=== PATIENT | female | born 1940 | race Two or more races ===

== ENCOUNTER 2023-06-06 03:06 | Inpatient (IN) | payer MEDICARE, OTHER ==
[~2023-06-06] VITALS: Ht 162.6 cm; Wt 82.1 kg
[2023-06-06] MEDS ORDERED: VIT1TABL46 GT (11:21)
[2023-06-06] MEDS ORDERED: DOCU50LI GT (11:21)
[2023-06-06] MEDS ORDERED: LOSA50TA39 GT (11:21)
[2023-06-06] MEDS ORDERED: QUET50TA GT (11:21)
[2023-06-06] MEDS ORDERED: DIVA125C2 GT (11:21)
[2023-06-06] MEDS ORDERED: PETR113O TP (11:21)
[2023-06-06] MEDS ORDERED: FAMO20TA8 GT (11:21)
[2023-06-06] MEDS ORDERED: FERR300L GT (11:21)
[2023-06-06] MEDS ORDERED: LACT10SO3 GT (11:21)
[2023-06-06] MEDS ORDERED: DIPH25CA51 GT (11:21)
[2023-06-06] MEDS ORDERED: CHLO473M5 MM (11:21)
[2023-06-06] MEDS ORDERED: PANT20TA17 GT (11:21)
[2023-06-06] MEDS ORDERED: LEVE500T9 GT (11:21)
[2023-06-06] MEDS ORDERED: ACET-868 GT (11:21)
[2023-06-06] MEDS ORDERED: ASCO-352 GT (11:21)
[2023-06-06] MEDS ORDERED: ATOR10TA GT (11:21)
[2023-06-06] MEDS ORDERED: DILT30TA14 GT (11:21)
[2023-06-06] MEDS ORDERED: HYDR-4075 GT (11:21)
[2023-06-06] MEDS ORDERED: MELA5TAB GT (11:21)
[2023-06-06] MEDS ORDERED: NUTR150016 GT (11:21)
[2023-06-06] MEDS ORDERED: MAGN400O6 GT (11:21)
[2023-06-06] MEDS ORDERED: BISA10SU11 RC (11:21)
[2023-06-06] MEDS ORDERED: QUET25TA GT (11:21)
[2023-06-06] MEDS ORDERED: CLON0.1T GT (11:21)
[2023-06-06] MEDS ORDERED: EPOE40002 SQ (11:21)
[2023-06-06] MEDS ORDERED: IPRA3AMP23 IH ×2 (11:21)
[2023-06-06] MEDS ORDERED: FOLI0.4T6 GT (11:21)
[2023-06-06] MEDS ORDERED: ONDANSETRON HCL/PF 4 MG/2 ML VIAL IVP PRN (11:30)
[2023-06-06] MEDS ORDERED: Z GUARD REMEDY 4 OZ OINT TP PRN (11:30)
[2023-06-06] MEDS ORDERED: IV NS 0.9% 1,000 ML IV PRN (11:30)
[2023-06-06] MEDS ORDERED: ACETAMINOPHEN 325 MG TABLET PO PRN (11:30)
[2023-06-06 12:00] VITALS: BP 158/96; TEMP 97.6
[2023-06-06] MEDS ORDERED: PIPERACILLIN /TAZOBACTAM 4.5 G in IV D5W 50 ML IV SCH (12:00)
[2023-06-06] MEDS ORDERED: ZOSYN IVPB 3.375 G in IV D5W 50ml IV ONE (12:00)
[2023-06-06 12:38] LABS: BASOPHILS % (AUTO) 0.1 % (0.0-2.0); EOSINOPHILS # (AUTO) 0.2 K/uL (0.0-0.7); EOSINOPHILS % (AUTO) 1.1 % (0.0-6.0); HEMATOCRIT 30 % (33-45); HEMOGLOBIN 9.6 g/dL (11.5-14.8); LYMPHOCYTES # (AUTO) 1.1 K/uL (0.8-4.8); LYMPHOCYTES % (AUTO) 5.8 % (20.0-44.0); MEAN CORPUSCULAR HEMOGLOBIN 31 PG (26.0-33.0); MEAN CORPUSCULAR HGB CONC 32 g/dl (31.0-36.0); MEAN CORPUSCULAR VOLUME 97 fL (82-100); MONOCYTES # (AUTO) 0.9 K/uL (0.1-1.30); MONOCYTES % (AUTO) 4.7 % (2.0-12.0); NEUTROPHILS # (AUTO) 16.3 K/uL (1.8-8.9); NEUTROPHILS % (AUTO) 88.3 % (43.0-81.0); PLATELET COUNT (AUTO) 212 K/uL (150-450); RED BLOOD CELL COUNT(AUTO) 3.08 MIL/uL (4.0-5.2); RED CELL DISTRIBUTION WIDTH 15.6 % (11.5-15.0); WHITE BLOOD COUNT (AUTO) 18.5 K/uL (4.3-11.0)
[2023-06-06 12:52] LABS: ALBUMIN 2.5 g/dL (3.4-5.0); BILIRUBIN,TOTAL 0.4 mg/dL (0.2-1.0); CALCIUM, SERUM 8.9 mg/dL (8.5-10.1); CREATININE 0.8 mg/dL (0.6-1.3); POTASSIUM 4.1 mmol/L (3.5-5.1); TOTAL PROTEIN, SERUM 8.3 g/dL (6.4-8.2)
[2023-06-06] MEDS ORDERED: VANCOMYCIN 1.5 GM in IV D5W 500 ML IV ONE (13:00)
[2023-06-06] MEDS: ENOXAPARIN SODIUM 40 MG/0.4 ML DISP.SYRIN SQ SCH (13:17)
[2023-06-06] MEDS ORDERED: JEVITY 1.2 CAL 1,000 ML BOTTLE GT PRN (14:30)
[2023-06-06] MEDS ORDERED: ACETAMINOPHEN LIQUID 325 MG/10.1 ML UDC GT PRN (14:30)
[2023-06-06 16:00] VITALS: BP 142/85; TEMP 97.8
[2023-06-06] MEDS: PIPERACILLIN /TAZOBACTAM 3.375 G in IV D5W 100 ML IV SCH (17:07)
[2023-06-06 20:00] VITALS: BP 169/87; TEMP 98.1; O2SAT 99
[2023-06-07] VITALS (8 sets, daily range): BP systolic 130–185; BP diastolic 54–82; TEMP 98.1–98.9; O2SAT 99–100
[2023-06-07] MEDS ORDERED: hydrALAZINE HCL IV 20 MG VIAL IV PRN (01:00)
[2023-06-07] MEDS: PIPERACILLIN /TAZOBACTAM 3.375 G in IV D5W 100 ML IV SCH ×3 (01:53→17:35)
[2023-06-07 07:02] LABS: BASOPHILS % (AUTO) 0.1 % (0.0-2.0); EOSINOPHILS # (AUTO) 0.2 K/uL (0.0-0.7); EOSINOPHILS % (AUTO) 1.9 % (0.0-6.0); HEMATOCRIT 28 % (33-45); LYMPHOCYTES # (AUTO) 1.1 K/uL (0.8-4.8); LYMPHOCYTES % (AUTO) 9.1 % (20.0-44.0); MEAN CORPUSCULAR HEMOGLOBIN 31 PG (26.0-33.0); MEAN CORPUSCULAR HGB CONC 32 g/dl (31.0-36.0); MEAN CORPUSCULAR VOLUME 97 fL (82-100); MONOCYTES # (AUTO) 0.8 K/uL (0.1-1.30); MONOCYTES % (AUTO) 6.8 % (2.0-12.0); NEUTROPHILS % (AUTO) 82.1 % (43.0-81.0); PLATELET COUNT (AUTO) 201 K/uL (150-450); RED BLOOD CELL COUNT(AUTO) 2.88 MIL/uL (4.0-5.2); RED CELL DISTRIBUTION WIDTH 15.2 % (11.5-15.0); WHITE BLOOD COUNT (AUTO) 12.1 K/uL (4.3-11.0)
[2023-06-07 08:15] LABS: ALBUMIN 2.4 g/dL (3.4-5.0); BILIRUBIN,TOTAL 0.3 mg/dL (0.2-1.0); CALCIUM, SERUM 9.1 mg/dL (8.5-10.1); CREATININE 0.9 mg/dL (0.6-1.3); MAGNESIUM 2.3 mg/dL (1.8-2.4); PHOSPHORUS 3.5 mg/dL (2.5-4.9); POTASSIUM 3.9 mmol/L (3.5-5.1); TOTAL PROTEIN, SERUM 7.8 g/dL (6.4-8.2)
[2023-06-07] MEDS ORDERED: FUROSEMIDE 40 MG/4 ML VIAL IV ONE (09:30)
[2023-06-07] MEDS ORDERED: CLONIDINE HCL 0.1 MG TABLET GT PRN (09:30)
[2023-06-07] MEDS ORDERED: MAGNESIUM HYDROXIDE 30 ML UDC GT PRN (09:30)
[2023-06-07] MEDS ORDERED: diphenhydrAMINE HCL 25 MG CAPSULE MC PRN (09:30)
[2023-06-07] MEDS: ENOXAPARIN SODIUM 40 MG/0.4 ML DISP.SYRIN SQ SCH (11:27)
[2023-06-07] MEDS: hydrALAZINE HCL 10 MG TABLET GT SCH ×2 (12:47→21:45)
[2023-06-07] MEDS: DIVALPROEX SODIUM 125 MG CAP.SPRINK GT SCH ×2 (12:47→21:45)
[2023-06-07] MEDS: FERROUS SULFATE UDC 300 MG/5 ML UDC GT SCH ×2 (12:48→17:33)
[2023-06-07] MEDS: LACTULOSE 10 G/15 ML UDC (PYXIS) GT SCH ×2 (12:48→21:44)
[2023-06-07] MEDS: VANCOMYCIN 1.25 GM in IV D5W 250 ML IV SCH (13:43)
[2023-06-07] MEDS: QUETIAPINE FUMARATE 25 MG TABLET GT SCH ×2 (17:34→21:45)
[2023-06-07] MEDS: DOCUSATE SODIUM LIQ 100 MG/10 ML UDC GT SCH (21:44)
[2023-06-07] MEDS: LEVETIRACETAM SOL (5 ML) 100 MG/ML UDC GT SCH (21:44)
[2023-06-07] MEDS: DILTIAZEM HCL 30 MG TABLET GT SCH (21:45)
[2023-06-07] MEDS: FAMOTIDINE (20 MG) 20 MG TABLET GT SCH (21:45)
[2023-06-07] MEDS: LOSARTAN POTASSIUM 50 MG TABLET GT SCH (21:46)
[2023-06-07] MEDS ORDERED: Medication Not On Formulary EA (Melatonin 10 MG) GT SCH (22:00)
[2023-06-08] VITALS: BP 140/69; TEMP 98.8; O2SAT 100
[2023-06-08] MEDS: JEVITY 1.2 CAL 1,000 ML BOTTLE GT PRN ×2 (00:20→17:35)
[2023-06-08] MEDS: PIPERACILLIN /TAZOBACTAM 3.375 G in IV D5W 100 ML IV SCH ×3 (00:28→16:36)
[2023-06-08 04:00] VITALS: BP 125/54; TEMP 98.6; O2SAT 100
[2023-06-08] MEDS: PANTOPRAZOLE 40 MG/PACK PACK GT SCH (05:05)
[2023-06-08] MEDS: LACTULOSE 10 G/15 ML UDC (PYXIS) GT SCH ×3 (05:06→20:50)
[2023-06-08] MEDS: hydrALAZINE HCL 10 MG TABLET GT SCH ×3 (05:06→20:50)
[2023-06-08] MEDS: DIVALPROEX SODIUM 125 MG CAP.SPRINK GT SCH ×3 (05:06→20:49)
[2023-06-08 06:04] LABS: BASOPHILS % (AUTO) 0.3 % (0.0-2.0); EOSINOPHILS # (AUTO) 0.3 K/uL (0.0-0.7); EOSINOPHILS % (AUTO) 3.8 % (0.0-6.0); HEMATOCRIT 27 % (33-45); LYMPHOCYTES # (AUTO) 1.5 K/uL (0.8-4.8); LYMPHOCYTES % (AUTO) 19.7 % (20.0-44.0); MEAN CORPUSCULAR HEMOGLOBIN 32 PG (26.0-33.0); MEAN CORPUSCULAR HGB CONC 33 g/dl (31.0-36.0); MEAN CORPUSCULAR VOLUME 96 fL (82-100); MONOCYTES # (AUTO) 0.8 K/uL (0.1-1.30); MONOCYTES % (AUTO) 10.1 % (2.0-12.0); NEUTROPHILS % (AUTO) 66.1 % (43.0-81.0); PLATELET COUNT (AUTO) 208 K/uL (150-450); RED BLOOD CELL COUNT(AUTO) 2.84 MIL/uL (4.0-5.2); WHITE BLOOD COUNT (AUTO) 7.5 K/uL (4.3-11.0)
[2023-06-08 06:47] LABS: CALCIUM, SERUM 9.4 mg/dL (8.5-10.1); CARBON DIOXIDE 32 mmol/L (21-32); CHLORIDE 104 mmol/L (98-107); CREATININE 1.1 mg/dL (0.6-1.3); GLUCOSE 122 mg/dL (74-106); MAGNESIUM 2.3 mg/dL (1.8-2.4); PHOSPHORUS 5.2 mg/dL (2.5-4.9); POTASSIUM 3.7 mmol/L (3.5-5.1); SODIUM SERUM 143 mmol/L (136-145); UREA NITROGEN, BLOOD 27 mg/dL (7-18)
[2023-06-08 08:00] VITALS: BP 136/66; TEMP 98; O2SAT 99
[2023-06-08] MEDS: DOCUSATE SODIUM LIQ 100 MG/10 ML UDC GT SCH ×2 (08:55→20:50)
[2023-06-08] MEDS: FERROUS SULFATE UDC 300 MG/5 ML UDC GT SCH ×3 (08:55→16:36)
[2023-06-08] MEDS: DILTIAZEM HCL 30 MG TABLET GT SCH ×2 (08:55→20:49)
[2023-06-08] MEDS: QUETIAPINE FUMARATE 25 MG TABLET GT SCH ×3 (08:55→23:16)
[2023-06-08] MEDS: LEVETIRACETAM SOL (5 ML) 100 MG/ML UDC GT SCH ×2 (08:55→20:50)
[2023-06-08] MEDS: LOSARTAN POTASSIUM 50 MG TABLET GT SCH ×2 (08:56→20:50)
[2023-06-08 12:00] VITALS: BP 98/49; TEMP 98.5; O2SAT 99
[2023-06-08] MEDS: ENOXAPARIN SODIUM 40 MG/0.4 ML DISP.SYRIN SQ SCH (12:46)
[2023-06-08] MEDS: VANCOMYCIN 1.25 GM in IV D5W 250 ML IV SCH (12:49)
[2023-06-08 16:00] VITALS: BP 99/58; TEMP 98.9; O2SAT 99
[2023-06-08 20:00] VITALS: BP 130/75; TEMP 97.9; O2SAT 99
[2023-06-08] MEDS: FAMOTIDINE (20 MG) 20 MG TABLET GT SCH (23:16)
[2023-06-09] VITALS: BP 136/77; TEMP 97.9; O2SAT 99
[2023-06-09] MEDS: PIPERACILLIN /TAZOBACTAM 3.375 G in IV D5W 100 ML IV SCH ×3 (01:20→16:56)
[2023-06-09 04:00] VITALS: BP 133/66; TEMP 97.9; O2SAT 99
[2023-06-09] MEDS: hydrALAZINE HCL 10 MG TABLET GT SCH ×3 (05:39→21:04)
[2023-06-09] MEDS: PANTOPRAZOLE 40 MG/PACK PACK GT SCH (05:40)
[2023-06-09] MEDS: LACTULOSE 10 G/15 ML UDC (PYXIS) GT SCH ×3 (05:40→21:05)
[2023-06-09] MEDS: DIVALPROEX SODIUM 125 MG CAP.SPRINK GT SCH ×3 (05:40→21:04)
[2023-06-09 07:10] LABS: BASOPHILS % (AUTO) 0.5 % (0.0-2.0); EOSINOPHILS # (AUTO) 0.3 K/uL (0.0-0.7); EOSINOPHILS % (AUTO) 6.4 % (0.0-6.0); HEMATOCRIT 27 % (33-45); HEMOGLOBIN 8.8 g/dL (11.5-14.8); LYMPHOCYTES # (AUTO) 1.4 K/uL (0.8-4.8); LYMPHOCYTES % (AUTO) 26.7 % (20.0-44.0); MEAN CORPUSCULAR HEMOGLOBIN 31 PG (26.0-33.0); MEAN CORPUSCULAR HGB CONC 32 g/dl (31.0-36.0); MEAN CORPUSCULAR VOLUME 97 fL (82-100); MONOCYTES # (AUTO) 0.7 K/uL (0.1-1.30); MONOCYTES % (AUTO) 12.3 % (2.0-12.0); NEUTROPHILS # (AUTO) 2.9 K/uL (1.8-8.9); NEUTROPHILS % (AUTO) 54.1 % (43.0-81.0); PLATELET COUNT (AUTO) 113 K/uL (150-450); RED CELL DISTRIBUTION WIDTH 15.3 % (11.5-15.0); WHITE BLOOD COUNT (AUTO) 5.4 K/uL (4.3-11.0)
[2023-06-09 07:35] LABS: CALCIUM, SERUM 8.9 mg/dL (8.5-10.1); CREATININE 1.1 mg/dL (0.6-1.3); MAGNESIUM 2.3 mg/dL (1.8-2.4); PHOSPHORUS 3.7 mg/dL (2.5-4.9); POTASSIUM 4.2 mmol/L (3.5-5.1)
[2023-06-09 08:00] VITALS: BP 120/64; TEMP 98.2; O2SAT 99
[2023-06-09] MEDS: LOSARTAN POTASSIUM 50 MG TABLET GT SCH ×2 (09:32→21:04)
[2023-06-09] MEDS: DOCUSATE SODIUM LIQ 100 MG/10 ML UDC GT SCH ×2 (09:32→21:05)
[2023-06-09] MEDS: LEVETIRACETAM SOL (5 ML) 100 MG/ML UDC GT SCH ×2 (09:32→21:05)
[2023-06-09] MEDS: DILTIAZEM HCL 30 MG TABLET GT SCH ×2 (09:32→21:03)
[2023-06-09] MEDS: FERROUS SULFATE UDC 300 MG/5 ML UDC GT SCH ×3 (09:32→16:58)
[2023-06-09] MEDS: QUETIAPINE FUMARATE 25 MG TABLET GT SCH ×3 (09:32→21:18)
[2023-06-09 12:00] VITALS: BP 120/59; TEMP 97.5; O2SAT 99
[2023-06-09] MEDS: VANCOMYCIN 1.25 GM in IV D5W 250 ML IV SCH (12:40)
[2023-06-09] MEDS: ENOXAPARIN SODIUM 40 MG/0.4 ML DISP.SYRIN SQ SCH (12:53)
[2023-06-09 16:00] VITALS: BP 123/72; TEMP 98; O2SAT 99
[2023-06-09 20:00] VITALS: BP 149/48; TEMP 98.2; O2SAT 99
[2023-06-09] MEDS: FAMOTIDINE (20 MG) 20 MG TABLET GT SCH (21:18)
[2023-06-10] VITALS (7 sets, daily range): BP systolic 127–166; BP diastolic 44–103; TEMP 97.7–99.1; O2SAT 99–100
[2023-06-10] MEDS: PIPERACILLIN /TAZOBACTAM 3.375 G in IV D5W 100 ML IV SCH ×3 (01:08→16:07)
[2023-06-10] MEDS: DIVALPROEX SODIUM 125 MG CAP.SPRINK GT SCH ×3 (05:21→21:10)
[2023-06-10] MEDS: hydrALAZINE HCL 10 MG TABLET GT SCH ×3 (05:21→21:10)
[2023-06-10] MEDS: PANTOPRAZOLE 40 MG/PACK PACK GT SCH (05:21)
[2023-06-10] MEDS: LACTULOSE 10 G/15 ML UDC (PYXIS) GT SCH ×3 (05:21→21:07)
[2023-06-10] MEDS: VANCOMYCIN 1.25 GM in IV D5W 250 ML IV SCH (05:27)
[2023-06-10 07:41] LABS: CREATININE 1.1 mg/dL (0.6-1.3); POTASSIUM 4.5 mmol/L (3.5-5.1)
[2023-06-10] MEDS: DOCUSATE SODIUM LIQ 100 MG/10 ML UDC GT SCH ×2 (08:47→21:07)
[2023-06-10] MEDS: LEVETIRACETAM SOL (5 ML) 100 MG/ML UDC GT SCH ×2 (08:47→21:06)
[2023-06-10] MEDS: FERROUS SULFATE UDC 300 MG/5 ML UDC GT SCH ×3 (08:47→16:06)
[2023-06-10] MEDS: DILTIAZEM HCL 30 MG TABLET GT SCH ×2 (08:48→21:10)
[2023-06-10] MEDS: QUETIAPINE FUMARATE 25 MG TABLET GT SCH ×3 (08:51→21:10)
[2023-06-10] MEDS: LOSARTAN POTASSIUM 50 MG TABLET GT SCH ×2 (08:51→21:09)
[2023-06-10] MEDS: ENOXAPARIN SODIUM 40 MG/0.4 ML DISP.SYRIN SQ SCH (11:20)
[2023-06-10] MEDS: JEVITY 1.2 CAL 1,000 ML BOTTLE GT PRN (11:23)
[2023-06-10] MEDS: FAMOTIDINE (20 MG) 20 MG TABLET GT SCH (21:11)
[2023-06-11] VITALS: BP 145/70; TEMP 98.2; O2SAT 100
[2023-06-11] MEDS: VANCOMYCIN 1.25 GM in IV D5W 250 ML IV SCH (00:33)
[2023-06-11] MEDS: PIPERACILLIN /TAZOBACTAM 3.375 G in IV D5W 100 ML IV SCH ×3 (02:14→16:38)
[2023-06-11 04:00] VITALS: BP 139/87; TEMP 98; O2SAT 100
[2023-06-11] MEDS: DIVALPROEX SODIUM 125 MG CAP.SPRINK GT SCH ×3 (05:24→21:45)
[2023-06-11] MEDS: LACTULOSE 10 G/15 ML UDC (PYXIS) GT SCH ×3 (05:24→21:44)
[2023-06-11] MEDS: hydrALAZINE HCL 10 MG TABLET GT SCH ×3 (05:24→21:44)
[2023-06-11 05:30] LABS: CALCIUM, SERUM 8.9 mg/dL (8.5-10.1); POTASSIUM 3.9 mmol/L (3.5-5.1)
[2023-06-11] MEDS: PANTOPRAZOLE 40 MG/PACK PACK GT SCH (06:07)
[2023-06-11 08:00] VITALS: BP 118/73; TEMP 98.1; O2SAT 100
[2023-06-11] MEDS: LEVETIRACETAM SOL (5 ML) 100 MG/ML UDC GT SCH ×2 (08:38→21:45)
[2023-06-11] MEDS: DILTIAZEM HCL 30 MG TABLET GT SCH ×2 (08:39→21:44)
[2023-06-11] MEDS: FERROUS SULFATE UDC 300 MG/5 ML UDC GT SCH ×3 (08:39→16:37)
[2023-06-11] MEDS: DOCUSATE SODIUM LIQ 100 MG/10 ML UDC GT SCH ×2 (08:39→21:44)
[2023-06-11] MEDS: QUETIAPINE FUMARATE 25 MG TABLET GT SCH ×3 (08:42→21:45)
[2023-06-11] MEDS: LOSARTAN POTASSIUM 50 MG TABLET GT SCH ×2 (08:45→21:45)
[2023-06-11] MEDS: ENOXAPARIN SODIUM 40 MG/0.4 ML DISP.SYRIN SQ SCH (10:53)
[2023-06-11] MEDS: JEVITY 1.2 CAL 1,000 ML BOTTLE GT PRN (11:23)
[2023-06-11 12:00] VITALS: BP 110/45; TEMP 97.9; O2SAT 100
[2023-06-11 16:00] VITALS: BP 99/48; TEMP 98.2; O2SAT 100
[2023-06-11 20:00] VITALS: BP 155/81; TEMP 98.6; O2SAT 100
[2023-06-11] MEDS: FAMOTIDINE (20 MG) 20 MG TABLET GT SCH (21:46)
[2023-06-12] VITALS: BP 128/65; TEMP 98; O2SAT 100
[2023-06-12] MEDS ORDERED: VANCOMYCIN 1.25 GM in IV D5W 250 ML IV SCH ×2
[2023-06-12] MEDS: PIPERACILLIN /TAZOBACTAM 3.375 G in IV D5W 100 ML IV SCH ×3 (01:41→16:04)
[2023-06-12 04:00] VITALS: BP 123/53; TEMP 98.2; O2SAT 100
[2023-06-12] MEDS: PANTOPRAZOLE 40 MG/PACK PACK GT SCH (05:44)
[2023-06-12] MEDS: hydrALAZINE HCL 10 MG TABLET GT SCH ×2 (05:44→12:37)
[2023-06-12] MEDS: DIVALPROEX SODIUM 125 MG CAP.SPRINK GT SCH ×2 (05:45→12:37)
[2023-06-12] MEDS: LACTULOSE 10 G/15 ML UDC (PYXIS) GT SCH ×2 (05:57→12:37)
[2023-06-12 06:24] LABS: CREATININE 1.1 mg/dL (0.6-1.3); POTASSIUM 3.9 mmol/L (3.5-5.1)
[2023-06-12] MEDS: JEVITY 1.2 CAL 1,000 ML BOTTLE GT PRN (07:24)
[2023-06-12 08:00] VITALS: BP 111/53; TEMP 98.2; O2SAT 99
[2023-06-12] MEDS: LOSARTAN POTASSIUM 50 MG TABLET GT SCH (08:32)
[2023-06-12] MEDS: FERROUS SULFATE UDC 300 MG/5 ML UDC GT SCH ×3 (08:32→16:04)
[2023-06-12] MEDS: QUETIAPINE FUMARATE 25 MG TABLET GT SCH ×2 (08:32→16:04)
[2023-06-12] MEDS: DOCUSATE SODIUM LIQ 100 MG/10 ML UDC GT SCH (08:32)
[2023-06-12] MEDS: LEVETIRACETAM SOL (5 ML) 100 MG/ML UDC GT SCH (08:32)
[2023-06-12] MEDS: DILTIAZEM HCL 30 MG TABLET GT SCH (08:33)
[2023-06-12] MEDS: ENOXAPARIN SODIUM 40 MG/0.4 ML DISP.SYRIN SQ SCH (10:57)
[2023-06-12 12:00] VITALS: BP 129/53; TEMP 98; O2SAT 100
[2023-06-12 16:00] VITALS: BP 147/81; TEMP 98; O2SAT 99
== END 2023-06-12 17:28 | DRG 207 ==
LOC: TELE1 10:39
PROVIDERS: ADMIT Internal Medicine
PROC: 5A1955Z Respiratory Ventilation, Greater than 96 Consecutive Hours (ICD-10-PCS; principal; 2023-06-06)
PROC: 05H633Z Insertion of Infusion Device into Left Subclavian Vein, Percutaneous Approach (ICD-10-PCS; 2023-06-12)
PROC: B547ZZA Ultrasonography of Left Subclavian Vein, Guidance (ICD-10-PCS; 2023-06-12)
DX: J95.851 Ventilator associated pneumonia (principal); J96.20 Acute and chronic respiratory failure, unspecified whether with hypoxia or hypercapnia; J15.6 Pneumonia due to other Gram-negative bacteria; G93.41 Metabolic encephalopathy; R65.11 Systemic inflammatory response syndrome (SIRS) of non-infectious origin with acute organ dysfunction; J90 Pleural effusion, not elsewhere classified; J98.11 Atelectasis; Z99.11 Dependence on respirator [ventilator] status; Y83.3 Surgical operation with formation of external stoma as the cause of abnormal reaction of the patient, or of later complication, without mention of misadventure at the time of the procedure; Y92.129 Unspecified place in nursing home as the place of occurrence of the external cause; E87.70 Fluid overload, unspecified; R13.10 Dysphagia, unspecified; D50.9 Iron deficiency anemia, unspecified; E78.5 Hyperlipidemia, unspecified; I10 Essential (primary) hypertension; Z93.0 Tracheostomy status; Z93.1 Gastrostomy status
CPT/HCPCS: 31720; 36415; 71045-TC; 80048-TC; 80053-TC; 80202-TC; 83735-TC; 83880; 84100-TC; 85025-TC; 87040-TC; 87081-TC; 94002-TC; 94003-TC; 94760-TC; 94762-TC; 94799-TC; A4217; A4223; A7526; G0378; J1650; J1940; J1953; J2543; J3370; J3490; J7030; J7050; J7060